=== PATIENT | male | born 1955 | race Caucasian/White ===

== ENCOUNTER 2016-08-28 18:47 | Inpatient (IN) | payer MEDICARE, OTHER ==
[~2016-08-28] VITALS: Ht 188 cm; Wt 105.7 kg
[~2016-08-28 18:47] MED LIST: ACET-868 PO; BISA10SU8 RC; CITA40TA22 PO; DEXT15DR6 EACHEYE; DOCU-25 PO; HYDR-3658 PO; LORA2TAB PO; MAG30ORA PO; MAGN400O4 PO; NA P133E RC; QUET100T PO; QUET200T PO; SOLI10TA PO; TERA5CAP4 PO; TRAZ-144 PO; ZOLP10TA2 PO
[2016-08-28] MEDS ORDERED: HALOPERIDOL LACTATE INJ 5 MG/ML VIAL ONE (18:54)
[2016-08-28] MEDS ORDERED: LORAZEPAM INJ 2 MG/ML VIAL ONE ×2 (18:54→19:31)
[2016-08-28] MEDS ORDERED: LORAZEPAM INJ 2 MG/ML VIAL IM ONE ×2 (19:00→19:30)
[2016-08-28] MEDS ORDERED: HALOPERIDOL LACTATE INJ 5 MG/ML VIAL IM ONE (19:00)
--- NOTE | 2016-08-28 19:09 | NUR ---
REPORT REC'D FROM FABIENNE ALEXANDRA FOR [facility]. PT IS YELLING: "NURSE". TREE AND SHRUB WORKER IS AT THE BEDSIDE FOR BLOOD DRAW.
[2016-08-28 19:12] LABS: BASOPHILS % (AUTO) 0.8 % (0.0-2.0); EOSINOPHILS % (AUTO) 0.4 % (0.0-6.0); HEMATOCRIT 43 % (39-51); HEMOGLOBIN 14.3 g/dL (13.5-17.5); LYMPHOCYTES # (AUTO) 1.5 /CMM (0.8-4.8); LYMPHOCYTES % (AUTO) 28.3 % (20.0-44.0); MEAN CORPUSCULAR HEMOGLOBIN 30 PG (26.0-33.0); MEAN CORPUSCULAR HGB CONC 34 g/dl (31.0-36.0); MEAN CORPUSCULAR VOLUME 90 fL (80-96); MONOCYTES # (AUTO) 0.7 /CMM (0.1-1.30); MONOCYTES % (AUTO) 12.8 % (2.0-12.0); NEUTROPHILS # (AUTO) 3.1 /CMM (1.8-8.9); NEUTROPHILS % (AUTO) 57.7 % (43.0-81.0); PLATELET COUNT (AUTO) 199 /CMM (150-450); RDW COEFFICIENT OF VARIATION 15.8 (11.5-15.0); RED BLOOD CELL COUNT(AUTO) 4.72 MIL/uL (4.5-6.0); WHITE BLOOD COUNT (AUTO) 5.3 K/uL (4.3-11.0)
--- NOTE | 2016-08-28 19:12 | NUR ---
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 PT IS A FALL RISK. PT IS YELLING AT THE BEDSIDE FOR A NURSE.
[2016-08-28 19:21] LABS: CALCIUM, SERUM 9.7 mg/dL (8.5-10.1); CARBON DIOXIDE 26 mmol/L (21-32); CHLORIDE 106 mmol/L (98-107); CREATININE 0.9 mg/dL (0.6-1.3); GFR 86 mL/min (>60); GLUCOSE 89 mg/dL (74-106); POTASSIUM 3.8 mmol/L (3.5-5.1); SODIUM SERUM 142 mmol/L (136-145); UREA NITROGEN, BLOOD 8 mg/dL (7-18)
[2016-08-28 19:27] LABS: ALANINE AMINOTRANSFERASE 36 U/L (12-78); ALBUMIN 3.4 g/dL (3.4-5.0); ALKALINE PHOSPHATASE 52 U/L (46-116); ASPARTATE AMINOTRANSFERASE 65 U/L (15-37); BILIRUBIN,DIRECT 0.3 mg/dL (0.0-0.2); BILIRUBIN,TOTAL 1.4 mg/dL (0.2-1.0); TOTAL PROTEIN, SERUM 7.2 g/dL (6.4-8.2)
[2016-08-28 19:29] LABS: SALICYLATE < 2.8 mg/dL (2.8-20.0)
[2016-08-28 19:30] LABS: ACETAMINOPHEN < 2 ug/ml (10-30); ALCOHOL, BLOOD < 3 mg/dL (0-0)
--- NOTE | 2016-08-28 19:41 | NUR ---
PT REC'D MEDICATION ORDERED.
[2016-08-28] MEDS ORDERED: LIDOCAINE 2% JEL UROJET 10 ML MM ONE ×2 (19:54→20:00)
--- NOTE | 2016-08-28 20:12 | NUR ---
IN AND OUT CATH DONE. ATTEMPTED X2 WITH MYSELF AND ISAC RN/CHG. UNABLE TO OBTAIN URINE. SMALL AMOUT OF BLOOD NOTED. DR. SANTORO NOTIFIED.
--- NOTE | 2016-08-28 20:12 | NUR ---
INFORMED DR. SANTORO UNABLE TO OBTAIN URINE VIA IN AND OUT CATH. AWARE.
--- NOTE | 2016-08-28 20:15 | NUR ---
CALLED [facility] FOR PSYCH EVAL, ETA 30 MIN
--- NOTE | 2016-08-28 20:46 | NUR ---
SONJA NELSON ARRIVED.
--- NOTE | 2016-08-28 20:56 | NUR ---
PT IS ON A 4684
--- NOTE | 2016-08-28 21:07 | NUR ---
CALLING REPORT TO EAN HOLT.
--- NOTE | 2016-08-28 21:50 | NUR ---
RN GPS NOTE PT ARRIVED ON UNIT. AAOX1, APPEARS RESTLESS AND ANXIOUS, STATING RUN ON SENTENCES. BREATHING EVEN AND NON-LABORED. VSS, SKIN ASSESSMENT COMPLETE. HERE FOR 72 HR 5150 HOLD. ORIENTATED TO UNIT. WILL CONT TO MONITOR CLOSELY.
[2016-08-28 22:00] VITALS: BP 136/51
[2016-08-28] MEDS ORDERED: MAGNESIUM HYDROXIDE 30 ML UDC PO PRN (22:00)
[2016-08-28] MEDS ORDERED: MAG HYDROX/AL HYDROX/SIMETH 30 ML UDC PO PRN (22:00)
[2016-08-28] MEDS ORDERED: Z GUARD REMEDY 2 OZ OINT TP PRN (22:00)
[2016-08-28] MEDS ORDERED: ENOXAPARIN SODIUM 40 MG/0.4 ML DISP.SYRIN SQ SCH (22:00)
[2016-08-28] MEDS ORDERED: ACETAMINOPHEN 325 MG TABLET PO PRN ×2 (22:00)
[2016-08-28] MEDS ORDERED: ONDANSETRON HCL/PF 4 MG/2 ML VIAL IVP PRN (22:00)
[2016-08-28] MEDS ORDERED: LORAZEPAM 0.5 MG TABLET PO PRN (22:00)
[2016-08-28 23:35] VITALS: BP 136/51
[2016-08-29] MEDS ORDERED: TEMAZEPAM 7.5 MG CAPSULE ONE (00:58)
[2016-08-29] MEDS: TEMAZEPAM 7.5 MG CAPSULE PO PRN (01:02)
[2016-08-29] MEDS ORDERED: HYDROCODONE/APAP 5/325MG 1 EACH TABLET ONE (03:34)
[2016-08-29] MEDS: HYDROCODONE/APAP 5/325MG 1 EACH TABLET PO PRN (03:42)
[2016-08-29 07:38] VITALS: BP 158/91
[2016-08-29 07:50] LABS: BASOPHILS % (AUTO) 0.6 % (0.0-2.0); EOSINOPHILS % (AUTO) 0.9 % (0.0-6.0); HEMATOCRIT 37 % (39-51); HEMOGLOBIN 12.5 g/dL (13.5-17.5); LYMPHOCYTES # (AUTO) 1.1 /CMM (0.8-4.8); LYMPHOCYTES % (AUTO) 29.1 % (20.0-44.0); MEAN CORPUSCULAR HEMOGLOBIN 30 PG (26.0-33.0); MEAN CORPUSCULAR HGB CONC 34 g/dl (31.0-36.0); MEAN CORPUSCULAR VOLUME 91 fL (80-96); MONOCYTES # (AUTO) 0.6 /CMM (0.1-1.30); MONOCYTES % (AUTO) 17.1 % (2.0-12.0); NEUTROPHILS % (AUTO) 52.3 % (43.0-81.0); PLATELET COUNT (AUTO) 160 /CMM (150-450); RED BLOOD CELL COUNT(AUTO) 4.13 MIL/uL (4.5-6.0); WHITE BLOOD COUNT (AUTO) 3.8 K/uL (4.3-11.0)
[2016-08-29 08:00] VITALS: BP 158/91
[2016-08-29 08:00] LABS: ALBUMIN 2.7 g/dL (3.4-5.0); BILIRUBIN,TOTAL 1.1 mg/dL (0.2-1.0); CALCIUM, SERUM 8.8 mg/dL (8.5-10.1); CREATININE 0.7 mg/dL (0.6-1.3); MAGNESIUM 1.8 mg/dL (1.8-2.4); PHOSPHORUS 3.1 mg/dL (2.5-4.9); POTASSIUM 3.3 mmol/L (3.5-5.1); TOTAL PROTEIN, SERUM 5.9 g/dL (6.4-8.2)
[2016-08-29 08:06] LABS: CHOLESTEROL 172 mg/dL (<200); HDL CHOLESTEROL 35 mg/dL (40-60); LDL 121 mg/dL (0-99); TRIGLYCERIDES 73 mg/dL (30-150)
[2016-08-29] MEDS: PANTOPRAZOLE 40 MG TABLET.DR PO SCH (08:06)
[2016-08-29] MEDS: DOCUSATE SODIUM 100 MG CAPSULE PO SCH (08:07)
[2016-08-29] MEDS: SOLIFENACIN SUCCINATE 5 MG TABLET PO SCH (08:07)
[2016-08-29 08:34] LABS: BAND % (MANUAL) 1 % (0.0-5.0); EOSINOPHILS % (MANUAL) 3 % (0-4); LYMPHOCYTES % (MANUAL) 24 % (16-48); MONOCYTES % (MANUAL) 8 % (0-11.0); NEUTROPHILS % (MANUAL) 64 (42-76); PLATELET ESTIMATE ADEQUATE
[2016-08-29] MEDS: ENOXAPARIN SODIUM 40 MG/0.4 ML DISP.SYRIN SQ SCH (08:54)
[2016-08-29] MEDS: POLYVINYL ALCOHOL 15 ML BOTTLE EACHEYE SCH ×2 (08:54→16:49)
[2016-08-29] MEDS ORDERED: POTASSIUM CHLORIDE 20 MEQ TAB.PRT.SR PO ONE (09:30)
[2016-08-29] MEDS: LORAZEPAM 0.5 MG TABLET PO PRN (10:25)
[2016-08-29] MEDS: DIVALPROEX SODIUM 125 MG CAP.SPRINK PO SCH ×2 (11:58→20:54)
[2016-08-29] MEDS ORDERED: Z GUARD REMEDY 2 OZ OINT TP PRN (13:00)
[2016-08-29 16:00] VITALS: BP 154/88
[2016-08-29] MEDS: Z GUARD REMEDY 2 OZ OINT TP SCH (16:49)
[2016-08-29] MEDS: QUETIAPINE FUMARATE 100 MG TABLET PO SCH ×2 (16:49→22:24)
--- NOTE | 2016-08-29 19:40 | NUR ---
GPS/DESK ASSISTANT; RECEIVED PT IN BED SLEEPING. BREATHING NON LABORED. PT. WITH REDNESS AND SCABS ON THE LT SIDE OF FOREHEAD. BED ON LOWER POSITION AND LOCKED FOR SAFETY. SIDE RAILS ARE UP FOR SAFETY. SITTER PRESENT IN THE ROOM. CONTINUE TO MONITOR.
[2016-08-29 20:00] VITALS: BP 148/79
[2016-08-29] MEDS: VALACYCLOVIR HCL 500 MG TABLET PO SCH (20:20)
[2016-08-29] MEDS: CIPROFLOXACIN HCL 0.3% 5 ML BOTTLE LEFTEYE SCH (20:53)
[2016-08-29] MEDS ORDERED: Z GUARD REMEDY 2 OZ OINT TP SCH (21:00)
--- NOTE | 2016-08-29 21:00 | NUR ---
GPS/HARDWOOD FLOOR INSTALLER; PT TOOK PO MEDS WITHOUT PROBLEM IN SWALLOWING. PT IS JUST IRRITABLE AT THIS TIME . PT WAS SAYING I HOPE YOU WAKE ME UP AGAIN FOR MED. Addendum: 08/30/16 at 0421 by ALYCE DIAL LVN MISSING WORD. I HOPE YOU WON'T WAKE ME UP AGAIN FOR MED.
--- NOTE | 2016-08-29 23:00 | NUR ---
GPS/CENTRAL STERILIZATION TECHNICIAN; SLEEPING AT THIS THIS TIME. NO S/S DISTRESS . SITTER PRESENT . CONTINUE TO MONITOR.
[2016-08-30] MEDS: CIPROFLOXACIN HCL 0.3% 5 ML BOTTLE LEFTEYE SCH ×6 (01:27→21:08)
--- NOTE | 2016-08-30 06:27 | NUR ---
GPS/PAPER MACHINE SUPERVISOR; SLEPT AT GOOD INTERVALS LAST NIGHT. CONFUSED AND YELLING . SITTER PRESENT AT ALL TIMES. AM CARE DONE. WILL ENDORSE TO THE DAY SHIFT NURSE.
[2016-08-30] MEDS: PANTOPRAZOLE 40 MG TABLET.DR PO SCH (08:26)
[2016-08-30] MEDS: SOLIFENACIN SUCCINATE 5 MG TABLET PO SCH (08:26)
[2016-08-30] MEDS: DIVALPROEX SODIUM 125 MG CAP.SPRINK PO SCH ×2 (08:26→21:08)
[2016-08-30] MEDS: VALACYCLOVIR HCL 500 MG TABLET PO SCH ×3 (08:26→17:18)
[2016-08-30] MEDS: DOCUSATE SODIUM 100 MG CAPSULE PO SCH (08:26)
[2016-08-30] MEDS: QUETIAPINE FUMARATE 100 MG TABLET PO SCH ×3 (08:27→21:08)
--- NOTE | 2016-08-30 09:00 | NUR ---
GPS/RN PATIENT COMBATIVE, AGITATED, YELLING, ADMINISTERED ATIVAN PO 1MG ORDERED, WILL CONTINUE TO MONITOR
[2016-08-30] MEDS: LORAZEPAM 0.5 MG TABLET PO PRN ×3 (09:01→22:15)
[2016-08-30] MEDS: POLYVINYL ALCOHOL 15 ML BOTTLE EACHEYE SCH ×2 (09:18→17:19)
[2016-08-30] MEDS: ENOXAPARIN SODIUM 40 MG/0.4 ML DISP.SYRIN SQ SCH (09:21)
[2016-08-30 09:58] VITALS: BP 151/85
[2016-08-30] MEDS: Z GUARD REMEDY 2 OZ OINT TP SCH ×2 (10:22→17:00)
--- NOTE | 2016-08-30 15:28 | NUR ---
GPS/RN PATIENT COMBATIVE, AGITATED, YELLING, ADMINISTERED ATIVAN PO 1MG ORDERED, WILL CONTINUE TO MONITOR
[2016-08-30 15:39] VITALS: BP 126/68
[2016-08-30] MEDS ORDERED: TETRACAINE HCL/PF 0.5% UD 2 ML BOTTLE ONE (16:41)
[2016-08-30] MEDS ORDERED: FLUORESCEIN SODIUM OPHTH 1 EA STRIP ONE (16:41)
[2016-08-30 20:02] VITALS: BP 143/85
[2016-08-30] MEDS: ZOLPIDEM TARTRATE 5 MG TABLET PO PRN (22:15)
--- NOTE | 2016-08-30 23:18 | NUR ---
Pt agitated and yelling in bed. Ativan 1mg/po provided for anxiety. Restoril 5mg/po given for insomnia. Effective. Post 1 hour pt calm and asleep in bed easy to arouse. Will continue to monitor.
[2016-08-31] MEDS: CIPROFLOXACIN HCL 0.3% 5 ML BOTTLE LEFTEYE SCH ×6 (00:38→21:22)
[2016-08-31] MEDS: PANTOPRAZOLE 40 MG TABLET.DR PO SCH (07:54)
[2016-08-31 08:00] VITALS: BP 141/83
[2016-08-31] MEDS: QUETIAPINE FUMARATE 100 MG TABLET PO SCH ×3 (08:01→21:22)
[2016-08-31] MEDS: VALACYCLOVIR HCL 500 MG TABLET PO SCH ×3 (08:01→16:20)
[2016-08-31] MEDS: ENOXAPARIN SODIUM 40 MG/0.4 ML DISP.SYRIN SQ SCH (08:01)
[2016-08-31] MEDS: DOCUSATE SODIUM 100 MG CAPSULE PO SCH (08:02)
[2016-08-31] MEDS: SOLIFENACIN SUCCINATE 5 MG TABLET PO SCH (08:02)
[2016-08-31] MEDS: DIVALPROEX SODIUM 125 MG CAP.SPRINK PO SCH ×2 (08:02→21:21)
[2016-08-31] MEDS: Z GUARD REMEDY 2 OZ OINT TP SCH ×2 (08:05→16:20)
[2016-08-31] MEDS: POLYVINYL ALCOHOL 15 ML BOTTLE EACHEYE SCH ×2 (08:06→16:23)
--- NOTE | 2016-08-31 10:11 | NUR ---
WOUND CARE CONSULT: PATIENT SEEN AND SKIN ASSESSMENT DONE. PATIENT ABLE TO TURN AND REPOSITION HOWEVER NEEDS PROMPTING AND ASSIST, INCONTINENT, DINORA 14. SEE TODAY'S SKIN ASSESSMENT IN PCS ALONG WITH RECOMMENDATIONS. RECOMMEND MOISTURE PROTECTION WITH Z GUARD ORDERED, TURN AND REPOSITION EVERY 2 HRS PATIENT CONDITION PERMITS, OFFLOAD BOTH HEELS. ALL DISCUSSED WITH NURSING STAFF. MD IN AGREEMENT WITH PLAN OF CARE. Addendum: 08/31/16 at 1014 by LEDA KAISER WNDNU Amended: Links added.
[2016-08-31] MEDS: LORAZEPAM 0.5 MG TABLET PO PRN ×2 (12:41→22:31)
--- NOTE | 2016-08-31 13:46 | NUR ---
Initial Discharge Plan: Patient resides at [facility] [address] [place] [address] . SW attempted to contact patient's Mother Maddie Caceres , however she was unavailable and SW left her a message with her contact information and will attempt agian later. SW also attempted to contact patient's sister Geneva Caceres , however she was unavailable SW left her a message with contact information and will attempt again later. ALAN spoke with Jose from the facility who confirmed that patient can return to the facility upon discharge. ALAN will follw-up with MD, family, and patient regarding most appropriate discharge plan. ALAN will help form a safe and proper discharge.
[2016-08-31 16:00] VITALS: BP 152/72
[2016-08-31] MEDS: ZOLPIDEM TARTRATE 5 MG TABLET PO PRN (21:21)
[2016-09-01] MEDS: CIPROFLOXACIN HCL 0.3% 5 ML BOTTLE LEFTEYE SCH ×6 (01:25→21:46)
[2016-09-01 03:46] VITALS: BP 143/81
[2016-09-01] MEDS: SOLIFENACIN SUCCINATE 5 MG TABLET PO SCH (08:55)
[2016-09-01] MEDS: DOCUSATE SODIUM 100 MG CAPSULE PO SCH (08:55)
[2016-09-01] MEDS: VALACYCLOVIR HCL 500 MG TABLET PO SCH ×3 (08:55→16:35)
[2016-09-01] MEDS: PANTOPRAZOLE 40 MG TABLET.DR PO SCH (08:55)
[2016-09-01] MEDS: QUETIAPINE FUMARATE 100 MG TABLET PO SCH ×3 (08:55→21:47)
[2016-09-01] MEDS: DIVALPROEX SODIUM 125 MG CAP.SPRINK PO SCH ×2 (08:55→21:46)
[2016-09-01] MEDS: POLYVINYL ALCOHOL 15 ML BOTTLE EACHEYE SCH ×2 (08:57→16:36)
[2016-09-01] MEDS: Z GUARD REMEDY 2 OZ OINT TP SCH ×2 (09:12→16:36)
[2016-09-01] MEDS: ENOXAPARIN SODIUM 40 MG/0.4 ML DISP.SYRIN SQ SCH (09:41)
--- NOTE | 2016-09-01 15:52 | NUR ---
Psychosocial assessment was reviewed and I concur with the information provided. No changes are necessary. Keon Urias, [facility] [id number] Addendum: 09/01/16 at 1552 by KEON URIAS SW Amended: Links added.
[2016-09-01 16:12] VITALS: BP 141/91
[2016-09-01 20:03] VITALS: BP 98/66
[2016-09-01] MEDS: ZOLPIDEM TARTRATE 5 MG TABLET PO PRN (21:47)
[2016-09-02] MEDS: CIPROFLOXACIN HCL 0.3% 5 ML BOTTLE LEFTEYE SCH ×6 (01:10→21:14)
[2016-09-02 08:19] VITALS: BP 112/59
[2016-09-02] MEDS: LORAZEPAM 0.5 MG TABLET PO PRN ×2 (08:44→14:00)
[2016-09-02] MEDS: DIVALPROEX SODIUM 125 MG CAP.SPRINK PO SCH ×2 (08:48→21:15)
[2016-09-02] MEDS: DOCUSATE SODIUM 100 MG CAPSULE PO SCH (08:48)
[2016-09-02] MEDS: SOLIFENACIN SUCCINATE 5 MG TABLET PO SCH (08:48)
[2016-09-02] MEDS: QUETIAPINE FUMARATE 100 MG TABLET PO SCH ×3 (08:49→21:15)
[2016-09-02] MEDS: ENOXAPARIN SODIUM 40 MG/0.4 ML DISP.SYRIN SQ SCH (08:51)
[2016-09-02] MEDS: PANTOPRAZOLE 40 MG TABLET.DR PO SCH (09:00)
[2016-09-02] MEDS: POLYVINYL ALCOHOL 15 ML BOTTLE EACHEYE SCH ×2 (09:26→17:53)
[2016-09-02] MEDS: Z GUARD REMEDY 2 OZ OINT TP SCH ×2 (09:28→17:58)
[2016-09-02 15:39] VITALS: BP 110/75
--- NOTE | 2016-09-02 19:30 | NUR ---
RN NOTES RECEIVED PT AWAKE ON BED, A/OX2, SITTER AT BEDSIDE, NO PAIN NOTED, NO SOB, CONTINUT TO MONITOR
[2016-09-02 20:00] VITALS: BP 115/60
[2016-09-02 20:29] VITALS: BP 115/60
[2016-09-03] MEDS: CIPROFLOXACIN HCL 0.3% 5 ML BOTTLE LEFTEYE SCH ×6 (01:20→21:36)
[2016-09-03 08:00] VITALS: BP 100/65
[2016-09-03] MEDS: SOLIFENACIN SUCCINATE 5 MG TABLET PO SCH (08:12)
[2016-09-03] MEDS: DIVALPROEX SODIUM 125 MG CAP.SPRINK PO SCH ×2 (08:12→21:31)
[2016-09-03] MEDS: DOCUSATE SODIUM 100 MG CAPSULE PO SCH (08:12)
[2016-09-03] MEDS: QUETIAPINE FUMARATE 100 MG TABLET PO SCH ×3 (08:13→21:32)
[2016-09-03] MEDS: Z GUARD REMEDY 2 OZ OINT TP SCH ×2 (08:13→18:07)
[2016-09-03] MEDS: POLYVINYL ALCOHOL 15 ML BOTTLE EACHEYE SCH ×2 (08:17→18:31)
[2016-09-03] MEDS: PANTOPRAZOLE 40 MG TABLET.DR PO SCH (08:17)
[2016-09-03] MEDS: ENOXAPARIN SODIUM 40 MG/0.4 ML DISP.SYRIN SQ SCH (09:28)
[2016-09-03] MEDS: LORAZEPAM 0.5 MG TABLET PO PRN ×2 (11:05→18:13)
--- NOTE | 2016-09-03 11:05 | NUR ---
gps/rn Patient agitated, restless, striking out, administered Ativan 0.5 mg 2 tabs as ordered. Scanned but it did not save in computer, was witnessed by IRMA/ravin at bedside. Addendum: 09/03/16 at 1852 by EDEL BRAY RN charge nurse made aware of situation.
[2016-09-03 16:00] VITALS: BP 108/65
--- NOTE | 2016-09-03 18:41 | NUR ---
Patient yelling, screaming,agitated,anxious, unable to redirect, administered Ativan Po 0.5 mg 2 tabs as ordered, will continue to monitor.
[2016-09-03 20:00] VITALS: BP 134/72
[2016-09-03] MEDS: TEMAZEPAM 7.5 MG CAPSULE PO PRN (21:32)
[2016-09-03] MEDS: HYDROCODONE/APAP 5/325MG 1 EACH TABLET PO PRN (23:45)
[2016-09-04] MEDS: CIPROFLOXACIN HCL 0.3% 5 ML BOTTLE LEFTEYE SCH ×4 (01:00→12:20)
[2016-09-04] MEDS: HYDROCODONE/APAP 5/325MG 1 EACH TABLET PO PRN (04:58)
[2016-09-04 08:03] VITALS: BP 106/71
[2016-09-04] MEDS: POLYVINYL ALCOHOL 15 ML BOTTLE EACHEYE SCH (08:13)
[2016-09-04] MEDS: SOLIFENACIN SUCCINATE 5 MG TABLET PO SCH (08:16)
[2016-09-04] MEDS: DOCUSATE SODIUM 100 MG CAPSULE PO SCH (08:16)
[2016-09-04] MEDS: DIVALPROEX SODIUM 125 MG CAP.SPRINK PO SCH (08:16)
[2016-09-04] MEDS: PANTOPRAZOLE 40 MG TABLET.DR PO SCH (08:16)
[2016-09-04] MEDS: QUETIAPINE FUMARATE 100 MG TABLET PO SCH (08:17)
[2016-09-04] MEDS: ENOXAPARIN SODIUM 40 MG/0.4 ML DISP.SYRIN SQ SCH (08:19)
[2016-09-04] MEDS: Z GUARD REMEDY 2 OZ OINT TP SCH (08:22)
--- NOTE | 2016-09-04 11:04 | NUR ---
PT. WITH AN ORDER TO D/C HOLD AND D/C TO [facility]. WITHOUT DISTRESS, DENIES SUICIDAL AND HOMICIDAL. TO FOLLOW UP WITH PSYCH AND MEDICAL DOCTORS. DR. QUINTEROS MADE AWARE OF THE DISCHARGE AND SAID OK FOR DISCHARGE AND TO CONTINUE MEDS AND NO PRNS. SKIN PICTURES TAKEN FOR THE SKIN ISSUES, BELONGINGS READY AND DISCHARGE PAPERS READY.
--- NOTE | 2016-09-04 11:23 | NUR ---
REPORT GIVEN TO AMY OVER THE FACILITY.
--- NOTE | 2016-09-04 13:20 | NUR ---
PT. LEFT THE UNIT VIA AMBULANCE AND TRANSPORTED VIA A GURNEY. LEFT WITHOUT DISTRESS AND ON STABLE CONDITION. V/S TAKEN: BP 104/64, MD 95, RR 16 AND OXYGEN SAT 95%.
--- NOTE | 2016-09-04 14:52 | NUR ---
Discharge Note: Patient returned back to [facility] [address] [place] [place] [address] . Via med response. Patient's sister Geneva Caceres was notified. Patient left the unit with no distress. Facilitated info to IDT team who are in agreement with discharge arrangement. The multidisciplinary exitcare form was done, printed, signed, and given to the patient.
== END 2016-09-04 13:20 | DRG 885 ==
LOC: ER 18:51 → GPS 21:17
PROVIDERS: ADMIT Psychiatry & Neurology Psychiatry; ATTEND Nurse Practitioner Acute Care
DX: F29 Unspecified psychosis not due to a substance or known physiological condition (principal); B00.52 Herpesviral keratitis; C90.00 Multiple myeloma not having achieved remission; B02.30 Zoster ocular disease, unspecified; Z73.6 Limitation of activities due to disability; F32.9 Major depressive disorder, single episode, unspecified; N40.0 Benign prostatic hyperplasia without lower urinary tract symptoms
CPT/HCPCS: 36415; 80048-TC; 80053-TC; 80061-TC; 80076-TC; 83735-TC; 84100-TC; 85025-TC; 87081-TC; A4606; G0480; G6039-TC; J1630; J1650; J2060; J3490; Z7610

== ENCOUNTER 2016-09-24 10:04 | Inpatient (IN) | payer MEDICARE, OTHER ==
[~2016-09-24] VITALS: Ht 195.6 cm; Wt 99.8 kg
--- NOTE | 2016-09-24 10:12 | NUR ---
Pt godwin from [facility]. agitation, SI no active plan. Placed on monitor. VSS. Awaiting md order
[2016-09-24] MEDS ORDERED: OXYB5TAB PO (10:14)
[2016-09-24] MEDS ORDERED: PANT40TA4 PO (10:14)
[2016-09-24] MEDS ORDERED: HYDR-3326 PO (10:14)
[2016-09-24] MEDS ORDERED: ATOR10TA PO (10:14)
[2016-09-24] MEDS ORDERED: DIVA250T4 PO (10:14)
[2016-09-24] MEDS ORDERED: DIVA500T2 PO (10:14)
[2016-09-24] MEDS ORDERED: QUET25TA PO ×2 (10:17→10:18)
--- NOTE | 2016-09-24 10:20 | NUR ---
LAB AT BEDSIDE COLLECTED BLOOD SAMPLE SENT TO LAB
[2016-09-24 10:23] LABS: BASOPHILS # (AUTO) 0.1 /CMM (0.0-0.2); BASOPHILS % (AUTO) 1.5 % (0.0-2.0); EOSINOPHILS # (AUTO) 0.1 /CMM (0.0-0.7); HEMATOCRIT 47 % (39-51); HEMOGLOBIN 15.7 g/dL (13.5-17.5); LYMPHOCYTES # (AUTO) 1.3 /CMM (0.8-4.8); MEAN CORPUSCULAR HEMOGLOBIN 30 PG (26.0-33.0); MEAN CORPUSCULAR HGB CONC 34 g/dl (31.0-36.0); MEAN CORPUSCULAR VOLUME 89 fL (80-96); MONOCYTES # (AUTO) 0.4 /CMM (0.1-1.30); MONOCYTES % (AUTO) 6.4 % (2.0-12.0); NEUTROPHILS # (AUTO) 3.7 /CMM (1.8-8.9); NEUTROPHILS % (AUTO) 67.1 % (43.0-81.0); PLATELET COUNT (AUTO) 145 /CMM (150-450); RDW COEFFICIENT OF VARIATION 16.7 (11.5-15.0); RED BLOOD CELL COUNT(AUTO) 5.22 MIL/uL (4.5-6.0); WHITE BLOOD COUNT (AUTO) 5.6 K/uL (4.3-11.0)
[2016-09-24] MEDS ORDERED: OLANZAPINE 5 MG TABLET ONE (10:33)
[2016-09-24 10:34] LABS: CALCIUM, SERUM 10.1 mg/dL (8.5-10.1); CARBON DIOXIDE 29 mmol/L (21-32); CHLORIDE 106 mmol/L (98-107); CREATININE 0.8 mg/dL (0.6-1.3); GFR 98 mL/min (>60); GLUCOSE 121 mg/dL (74-106); POTASSIUM 3.8 mmol/L (3.5-5.1); SODIUM SERUM 141 mmol/L (136-145); UREA NITROGEN, BLOOD 11 mg/dL (7-18)
[2016-09-24 10:46] LABS: ALANINE AMINOTRANSFERASE 14 U/L (12-78); ALBUMIN 3.6 g/dL (3.4-5.0); ALKALINE PHOSPHATASE 61 U/L (46-116); ASPARTATE AMINOTRANSFERASE 15 U/L (15-37); BILIRUBIN,DIRECT 0.2 mg/dL (0.0-0.2); BILIRUBIN,TOTAL 1.1 mg/dL (0.2-1.0); TOTAL PROTEIN, SERUM 7.1 g/dL (6.4-8.2)
[2016-09-24 10:47] LABS: ACETAMINOPHEN 0 ug/ml (10-30)
[2016-09-24 10:48] LABS: ALCOHOL, BLOOD 0 mg/dL (0-0); SALICYLATE < 0.2 mg/dL (2.8-20.0)
[2016-09-24 10:55] LABS: APPEARANCE,URINE Cloudy (CLEAR); BILIRUBIN,URINE SMALL (NEGATIVE); BLOOD, URINE Large Ery/uL (NEGATIVE); COLOR,URINE Red (YELLOW); KETONES,URINE 15 (NEGATIVE); LEUKOCYTE ESTERASE ,URINE Negative (NEGATIVE); NITRITE, URINE Negative (NEGATIVE); PROTEIN,URINE 100 mg/dl (NEGATIVE); UGLUCOSE Negative (NEGATIVE)
--- NOTE | 2016-09-24 10:59 | NUR ---
URINE SAMPLE COLLECTED SENT TO LAB. HEMATURIA INFORMED
[2016-09-24] MEDS ORDERED: OLANZAPINE 5 MG TABLET PO ONE (11:00)
[2016-09-24 11:05] LABS: RBC,URINE TOO NUMEROUS TO COUN /HPF (0-2)
[2016-09-24 11:06] LABS: WBC,URINE 0-2 /HPF (0-3)
[2016-09-24 11:07] LABS: ADD URINE CULTURE NO; BACTERIA,URINE None seen /HPF (None Seen); SQUAMOUS EPITHELIAL CELL,UR None Seen /HPF (None Seen)
[2016-09-24 11:13] LABS: CANNABINOID, URINE NEGATIVE (NEGATIVE); PHENCYCLIDINE SCREEN,URINE NEGATIVE (NEGATIVE)
--- NOTE | 2016-09-24 12:12 | NUR ---
CALLED VERON[facility] FOR PSYCH EVAL
--- NOTE | 2016-09-24 16:16 | NUR ---
gave report to [facility] room 220
[2016-09-24 16:30] VITALS: BP 142/86
--- NOTE | 2016-09-24 16:45 | NUR ---
GPS/RN ADMITTING ORDERS RECEIVED AND CARRIED OUT. PT IS AMBULATORY, NO ACUTE DISTRESS, REFUSED TO SIGN ADMITTING PACKAGE. NO SI OR HI AT THE TIME OF ADMISSION FACE TO FACE. SKIN SCABS, DISCOLORATIONS NOTED AND PICTURES TAKEN. FAMILY MADE AWARE OF PT ADMISSION.
[2016-09-24] MEDS ORDERED: ACETAMINOPHEN 325 MG TABLET PO PRN (17:00)
[2016-09-24] MEDS ORDERED: MAG HYDROX/AL HYDROX/SIMETH 30 ML UDC PO PRN (17:00)
[2016-09-24] MEDS ORDERED: MAGNESIUM HYDROXIDE 30 ML UDC PO PRN (17:00)
--- NOTE | 2016-09-24 18:15 | NUR ---
GPS/FABIENNE PLUMMER MADE AWARE OF ADMISSION AND ASKED TO GIVE THAT TO NIGHT PERSON TO FOLLOW UP. WILL ENDORSE TO SEASONAL RETAIL MERCHANDISER TO FOLLOW UP Addendum: 09/24/16 at 1907 by MOR BURT RN ENDORSEMENT TO PRAVEEN LOVING
[2016-09-24 20:00] VITALS: BP 123/87
[2016-09-24] MEDS: LORAZEPAM 0.5 MG TABLET PO PRN (20:10)
[2016-09-24] MEDS: TEMAZEPAM 7.5 MG CAPSULE PO PRN ×2 (20:37→22:42)
[2016-09-25] MEDS: LORAZEPAM 0.5 MG TABLET PO PRN ×2 (03:15→14:09)
[2016-09-25 07:31] LABS: ALBUMIN 3.4 g/dL (3.4-5.0); CALCIUM, SERUM 9.5 mg/dL (8.5-10.1); CREATININE 0.8 mg/dL (0.6-1.3); POTASSIUM 3.6 mmol/L (3.5-5.1); TOTAL PROTEIN, SERUM 6.7 g/dL (6.4-8.2)
[2016-09-25 07:43] LABS: CHOLESTEROL 123 mg/dL (<200); HDL CHOLESTEROL 36 mg/dL (40-60); LDL 68 mg/dL (0-99); TRIGLYCERIDES 105 mg/dL (30-150)
[2016-09-25 08:00] VITALS: BP 132/82
[2016-09-25] MEDS ORDERED: HYDROCODONE/APAP 5/325MG 1 EACH TABLET PO PRN (11:30)
[2016-09-25] MEDS: POLYVINYL ALCOHOL 15 ML BOTTLE OP SCH ×2 (11:51→17:12)
[2016-09-25] MEDS: OXYBUTYNIN CHLORIDE 5 MG TABLET PO SCH ×2 (12:59→16:48)
[2016-09-25] MEDS: DIVALPROEX SODIUM 500 MG TABLET.DR PO SCH ×2 (13:19→21:18)
--- NOTE | 2016-09-25 13:59 | NUR ---
I have reviewed this patients psychosocial dated 08/31/16 and I can attest to the accuracy of the information therein. There have been no changes since her last assessment. Pt. was sent to the emergency room for suicidal ideations. Pt. appears anxious, confused, and irritable. Pt. is compliant with medications. Pt. denies homicidal ideations. Pt. denies visual and auditory hallucinations. Patient's sister Geneva is his electrical tryout person Geneva Caceres .
--- NOTE | 2016-09-25 14:16 | NUR ---
Initial Discharge Plan: Patient was residing at [facility] [address] [place] [address]. [place] [address] . Life Enrichment Assistant attempted to contact patient's sister Geneva Caceres , however she was unavailable social worker masters left her a message with her contact information, link trainer maintenance worker will attempt again later. link trainer maintenance worker spoke with marixa from the facility who sated that their administrators had signed a form stating that patient can return when he is stable and ready for discharge. link trainer maintenance worker will follow-up with MD, family, and patient regarding most appropriate discharge and will help form a safe and proper discharge.
[2016-09-25 16:00] VITALS: BP 128/91
[2016-09-25] MEDS: QUETIAPINE FUMARATE 100 MG TABLET PO SCH (16:48)
--- NOTE | 2016-09-25 19:35 | NUR ---
GPS RN NOTES RECEIVED ON BED AWAKE,CONFUSED,SCREAMING,WANTS TO GET OUT OF BED.FALL PRECAUTION OBSERVED.BED ON LOWEST PRECAUTION AND LOCK.WILL CONTINUE TO MONITOR BEHAVIOR.
[2016-09-25 20:00] VITALS: BP 138/88
[2016-09-25 20:02] VITALS: BP 138/88
[2016-09-25] MEDS: ATORVASTATIN 10 MG TABLET PO SCH (21:18)
[2016-09-26] MEDS: LORAZEPAM 0.5 MG TABLET PO PRN (04:38)
--- NOTE | 2016-09-26 04:41 | NUR ---
GPS RN NOTES AWAKE,APPEARS ANXIOUS,SCREAMS,MEDICATED WITH ATIVAN 1MG PO ORDERED
[2016-09-26 08:31] VITALS: BP 106/66
[2016-09-26] MEDS: OXYBUTYNIN CHLORIDE 5 MG TABLET PO SCH ×3 (08:36→16:39)
[2016-09-26] MEDS: QUETIAPINE FUMARATE 100 MG TABLET PO SCH ×2 (08:36→16:39)
[2016-09-26] MEDS: DIVALPROEX SODIUM 500 MG TABLET.DR PO SCH ×2 (08:36→21:41)
[2016-09-26] MEDS: PANTOPRAZOLE 40 MG TABLET.DR PO SCH (08:36)
[2016-09-26] MEDS: POLYVINYL ALCOHOL 15 ML BOTTLE OP SCH ×2 (08:37→16:40)
[2016-09-26 16:02] VITALS: BP 109/73
[2016-09-26 20:00] VITALS: BP 121/85
[2016-09-26] MEDS: ATORVASTATIN 10 MG TABLET PO SCH (21:41)
[2016-09-27 08:00] VITALS: BP 118/78
[2016-09-27] MEDS: DIVALPROEX SODIUM 500 MG TABLET.DR PO SCH (08:36)
[2016-09-27] MEDS: PANTOPRAZOLE 40 MG TABLET.DR PO SCH (08:36)
[2016-09-27] MEDS: OXYBUTYNIN CHLORIDE 5 MG TABLET PO SCH ×3 (08:36→17:37)
[2016-09-27] MEDS: QUETIAPINE FUMARATE 100 MG TABLET PO SCH ×3 (08:36→17:37)
[2016-09-27] MEDS: LORAZEPAM 0.5 MG TABLET PO PRN ×2 (08:36→20:16)
[2016-09-27] MEDS: POLYVINYL ALCOHOL 15 ML BOTTLE OP SCH ×2 (09:05→17:50)
[2016-09-27] MEDS: DIVALPROEX SODIUM 250 MG TABLET.DR PO SCH ×2 (13:19→17:37)
[2016-09-27 15:53] VITALS: BP 109/71
[2016-09-27 20:03] VITALS: BP 107/58
[2016-09-27] MEDS: ATORVASTATIN 10 MG TABLET PO SCH (21:41)
--- NOTE | 2016-09-28 01:30 | NUR ---
Pt has been quite anxious, with poor impulse control, loud, & with poor insight but compliant/redirectable.
[2016-09-28 07:25] LABS: BASOPHILS % (AUTO) 0.3 % (0.0-2.0); EOSINOPHILS # (AUTO) 0.1 /CMM (0.0-0.7); EOSINOPHILS % (AUTO) 1.8 % (0.0-6.0); HEMATOCRIT 46 % (39-51); HEMOGLOBIN 15.6 g/dL (13.5-17.5); LYMPHOCYTES # (AUTO) 1.1 /CMM (0.8-4.8); LYMPHOCYTES % (AUTO) 34.2 % (20.0-44.0); MEAN CORPUSCULAR HEMOGLOBIN 30 PG (26.0-33.0); MEAN CORPUSCULAR HGB CONC 34 g/dl (31.0-36.0); MEAN CORPUSCULAR VOLUME 90 fL (80-96); MONOCYTES # (AUTO) 0.2 /CMM (0.1-1.30); MONOCYTES % (AUTO) 7.2 % (2.0-12.0); NEUTROPHILS # (AUTO) 1.8 /CMM (1.8-8.9); NEUTROPHILS % (AUTO) 56.5 % (43.0-81.0); PLATELET COUNT (AUTO) 153 /CMM (150-450); RDW COEFFICIENT OF VARIATION 17.9 (11.5-15.0); RED BLOOD CELL COUNT(AUTO) 5.13 MIL/uL (4.5-6.0); WHITE BLOOD COUNT (AUTO) 3.1 K/uL (4.3-11.0)
[2016-09-28 08:00] VITALS: BP 109/70
[2016-09-28] MEDS: OXYBUTYNIN CHLORIDE 5 MG TABLET PO SCH ×3 (08:02→16:59)
[2016-09-28] MEDS: LORAZEPAM 0.5 MG TABLET PO PRN ×2 (08:02→15:36)
[2016-09-28] MEDS: QUETIAPINE FUMARATE 100 MG TABLET PO SCH ×3 (08:02→16:59)
[2016-09-28] MEDS: PANTOPRAZOLE 40 MG TABLET.DR PO SCH (08:02)
[2016-09-28] MEDS: DIVALPROEX SODIUM 250 MG TABLET.DR PO SCH ×3 (08:02→16:59)
--- NOTE | 2016-09-28 08:02 | NUR ---
GPS/RN PATIENT ANXIOUS, AGITATED, YELLING, NON REDIRECTABLE, ADMINISTERED ATIVAN PO ORDERED, WILL CONTINUE TO MONITOR
[2016-09-28 08:14] LABS: ALBUMIN 3.7 g/dL (3.4-5.0); BILIRUBIN,TOTAL 1.5 mg/dL (0.2-1.0); CALCIUM, SERUM 9.7 mg/dL (8.5-10.1); CREATININE 0.8 mg/dL (0.6-1.3); POTASSIUM 3.9 mmol/L (3.5-5.1); TOTAL PROTEIN, SERUM 7.4 g/dL (6.4-8.2)
[2016-09-28] MEDS: POLYVINYL ALCOHOL 15 ML BOTTLE OP SCH ×2 (08:35→18:00)
--- NOTE | 2016-09-28 15:36 | NUR ---
GPS/RN PATIENT ANXIOUS, SCREAMING, ACUTE AGITATION,NON REDIRECTABLE, ADMINISTERED ATIVAN PO ORDERED, WILL CONTINUE TO MONITOR
[2016-09-28 16:00] VITALS: BP 115/71
--- NOTE | 2016-09-28 19:30 | NUR ---
GPS RN NOTE, RECEIVED PATIENT AWAKE AND IN BED, NO S/S OR COMPLAINTS OF PAIN AT THIS TIME. PATIENT IS DISPLAYING NO S/S OF APPARENT DISTRESS AT THIS TIME. PATIENT BREATHING IS UNLABORED WITH EQUAL RISE AND FALL OF THE CHEST. PATIENT IS ALERT AND ORIENTED X 1 ON ROOM AIR WITH A SPO2 95%. PATIENT COMPLIANT WITH MEDICATIONS, ANXIOUS, HYPERVERBAL, DISORGANIZED, CONFUSED AT TIMES, AND NEEDS REORIENTATION. PATIENT DENIES SUICIDE AND HOMICIDAL IDEATIONS AT THIS TIME. PATIENT ASSISTED WITH TURNING AND REPOSITIONING Q2HR AND PRN FOR COMFORT AND CIRCULATION. PATIENT HAS NO NEEDS AT THIS TIME. PATIENT EDUCATED ON THE USE OF THE CALL DENNIS. PATIENT BED SIDE RAILS UP X2 FOR SAFETY, BED IS LOCKED AND LOW WILL CONTINUE TO MONITOR AND MAINTAIN SAFETY.
[2016-09-28 19:49] VITALS: BP 114/87
[2016-09-28] MEDS: ATORVASTATIN 10 MG TABLET PO SCH (21:27)
[2016-09-28] MEDS: TEMAZEPAM 7.5 MG CAPSULE PO PRN (21:27)
--- NOTE | 2016-09-28 21:27 | NUR ---
GPS RN NOTE, PATIENT HAS A COMPLAINT OF NOT BEING ABLE TO SLEEP AND WOULD LIKE A SLEEPING AID AT THIS TIME. PATIENT VITAL SIGNS ARE STABLE. GAVE RESTORIL 15MG PO HS ORDERED. WILL REASSESS FOR INSOMNIA AND I WILL CONTINUE TO MONITOR THIS PATIENT.
[2016-09-29 08:00] VITALS: BP 111/69
[2016-09-29] MEDS: DIVALPROEX SODIUM 250 MG TABLET.DR PO SCH ×3 (08:11→16:22)
[2016-09-29] MEDS: OXYBUTYNIN CHLORIDE 5 MG TABLET PO SCH ×3 (08:11→16:22)
[2016-09-29] MEDS: QUETIAPINE FUMARATE 100 MG TABLET PO SCH ×3 (08:11→16:22)
[2016-09-29] MEDS: PANTOPRAZOLE 40 MG TABLET.DR PO SCH (08:11)
[2016-09-29] MEDS: POLYVINYL ALCOHOL 15 ML BOTTLE OP SCH ×2 (08:56→16:23)
--- NOTE | 2016-09-29 09:09 | NUR ---
Executive Wellness Programs Director spoke to Mana from [facility] who confirmed that patient can return to the facility when he is ready for discharge.
[2016-09-29 15:43] VITALS: BP 101/69
[2016-09-29 20:27] VITALS: BP 99/50
[2016-09-29] MEDS: ATORVASTATIN 10 MG TABLET PO SCH (21:48)
[2016-09-30 08:00] VITALS: BP 127/93
[2016-09-30] MEDS: DIVALPROEX SODIUM 250 MG TABLET.DR PO SCH ×3 (08:36→17:50)
[2016-09-30] MEDS: QUETIAPINE FUMARATE 100 MG TABLET PO SCH ×3 (08:36→17:50)
[2016-09-30] MEDS: OXYBUTYNIN CHLORIDE 5 MG TABLET PO SCH ×3 (08:36→17:50)
[2016-09-30] MEDS: PANTOPRAZOLE 40 MG TABLET.DR PO SCH (08:36)
[2016-09-30] MEDS: LORAZEPAM 0.5 MG TABLET PO PRN ×2 (08:36→18:10)
--- NOTE | 2016-09-30 08:37 | NUR ---
administered ativan 1 mg po prn for yelling, paranoia, increased anxiety, v/s stable bp-127/93, p-86, continued, monitoring.
[2016-09-30] MEDS: POLYVINYL ALCOHOL 15 ML BOTTLE OP SCH ×2 (08:42→17:51)
--- NOTE | 2016-09-30 13:15 | NUR ---
administered ativan 2 mg po prn for anxiety , per dr Patel order before patient discharge , v/s taken bp-138/70, p-99, continued monitoring.
[2016-09-30] MEDS ORDERED: LORAZEPAM 1 MG TABLET PO ONE (13:30)
[2016-09-30 16:00] VITALS: BP 100/61
--- NOTE | 2016-09-30 18:10 | NUR ---
ADMINISTERED ATIVAN 1 MG PO PRN FOR ANXIETY, YELLING, V/S TAKEN BP -122/77,P-100, STABLE, CONTINUED MONITORING.
--- NOTE | 2016-09-30 19:32 | NUR ---
DISCHARGE PATIENT TO [facility] AND LEFT THE UNIT WITH VIA AMBULANCE WITH 2 EMT ASSISTANCE, STABLE CONDITION, V/S WITHIN NORMAL LIMITS, NO SOB, NO ACUTE DISTRESS NOTED, DENIES PAIN AND DISCOMFORT, DENIES SI/HI, PATIENT TRANSFERRED SAFELY FROM [facility] TO [facility] WITH 3 LICENSE NURSES AND 2 EMT ASSISTANCE, BODY CHECK DONE, MD AWARE OF THE DISCHARGE, REPORT PASSED BY THE PREVIOUS NURSE Addendum: 09/30/16 at 1950 by CATHIE SANTAMARIA II, RN ADDENDUM: PATIENT COOPERATIVE OF THE DISCHARGE, NO AGITATION, CALM AND COMFORTABLE.
== END 2016-09-30 19:35 | DRG 885 ==
LOC: ER 10:05 → GPS 15:56
PROVIDERS: ADMIT Psychiatry & Neurology Psychiatry; ATTEND Family Medicine
DX: F29 Unspecified psychosis not due to a substance or known physiological condition (principal); C90.00 Multiple myeloma not having achieved remission; Z79.899 Other long term (current) drug therapy; E78.5 Hyperlipidemia, unspecified; R73.9 Hyperglycemia, unspecified; G89.29 Other chronic pain; M54.9 Dorsalgia, unspecified; F39 Unspecified mood [affective] disorder
CPT/HCPCS: 36415; 80048-TC; 80053-TC; 80061-TC; 80076-TC; 80164-TC; 80305; 81000-TC; 85025-TC; A4606; G0480; G6039-TC; Z7610